=== PATIENT | male | born 1980 | race Caucasian/White ===

== ENCOUNTER → 2021-06-09 | Outpatient (CLI) | payer OTHER ==
--- NOTE | 2021-06-09 14:51 | RAD ---
EXAM: CT facial bone without contrast INDICATION: Frontal headaches COMPARISON: None TECHNIQUE: Axial CT imaging facial bones without intravenous contrast. Sagittal and coronal reformats were obtained. One or more of the following individualized dose reduction techniques were utilized for this examinat ion: 1. Automated exposure control 2. Adjustment of the mA and/or kV according to patient size 3. Use of iterative reconstruction technique. FINDINGS: No acute fracture. Temporomandibular joints are normally aligned. The left frontal sinus is underdeve loped, normal variant. The paranasal sinuses are clear. Sinus drainage pathways are clear. No osteiti s. No significant bowing of the nasal septum. Nasal turbinates are normal in appearance. Globes and o rbits are intact. The skull base is unremarkable. Visualized intracranial contents are unremarkable. IMPRESSION: Normal CT of the facial bones. Electronically signed by: Alida Gutierrez MD (06/09/2021 2:49 PM) [id number]
== END ==
LOC: CT 13:47
PROVIDERS: ATTEND Family Medicine
DX: R51.9 Headache, unspecified (principal)
CPT/HCPCS: 70486